=== PATIENT | male | born 2000 | race Hispanic/Latino ===

== ENCOUNTER 2019-05-01 09:55 | Emergency (ER) | payer SELFPAY ==
--- NOTE | 2019-05-01 10:31 | ER ---
Nurse's Notes [facility] Name: Bakari Mayers Age: 18 yrs Sex: Male : 2000 Arrival Date: 05/01/2019 Time: 09:58 Bed 20 Private MD: Diagnosis: Pulpitis;Dental root caries Presentation: 05/01 10:17 Presenting complaint: Patient states: R TOOTH PAIN x2 DAYS. Transition of care: patient bp was not received from another setting of care. Mechanism of Injury: No Mechanism of Injury. The patient denies any loss of vision. Onset of symptoms is unknown. Risk Assessment: Do you want to hurt yourself or someone else? Patient reports no desire to harm self or others. Initial Sepsis Screen: Does the patient meet any 2 criteria? No. Patient's initial sepsis screen is negative. Does the patient have a suspected source of infection? No. Patient's initial sepsis screen is negative. Care prior to arrival: Medication(s) given: IBUPROFEN AND AMOXICILLIN FROM [place]. 10:17 Method Of Arrival: Ambulatory bp 10:17 Acuity: BREANN 5 bp Triage Assessment: 10:18 General: Appears in no apparent distress. comfortable, Behavior is cooperative, bp appropriate for age, anxious. Pain: Complains of pain in right side of head. EENT: Reports R DENTAL PAIN. Neuro: No deficits noted. Cardiovascular: No deficits noted. Respiratory: No deficits noted. GI: No signs and/or symptoms were reported involving the gastrointestinal system. : No signs and/or symptoms were reported regarding the genitourinary system. Derm: No deficits noted. Musculoskeletal: No deficits noted. Historical: - Allergies: 10:18 No Known Allergies; bp - Home Meds: 10:18 None [Active]; bp - PMHx: 10:18 None; bp - Immunization history:: Adult Immunizations up to date. - Social history:: Smoking status: Patient/guardian denies using tobacco. - Ebola Screening: : No symptoms or risks identified at this time. Screenin:23 Abuse screen: Denies threats or abuse. Denies injuries from another. Nutritional bp screening: No deficits noted. Tuberculosis screening: No symptoms or risk factors identified. Fall Risk None identified. Assessment: 10:21 General: SEE TRIAGE NOTE. EENT: Eyes NO ABNORMALITIES NOTED. Sclera/Cornea are clear in bp right eye. 10:41 Reassessment: PT D/C HOME AMBULATORY WITH FAMILY, DX WITH PULPITIS. bp Vital Signs: 10:18 BP 138 / 73; Pulse 93; Resp 17; Temp 98; Pulse Ox 100% ; Weight 113.4 kg; Height 5 ft. bp 10 in. (177.80 cm); 10:18 Body Mass Index 35.87 (113.40 kg, 177.80 cm) bp ED Course: 09:58 Patient arrived in ED. mr 10:11 Jazzmine Wade, RN is Primary Nurse. ph 10:11 Sonny Luna PA is PHCP. jr8 10:11 Damien Pollock MD is Attending Physician. jr8 10:12 Damien Pollock MD is Attending Physician. jr8 10:18 Triage completed. bp 10:18 Arm band placed on. bp 10:23 Patient has correct armband on for positive identification. Bed in low position. Call bp light in reach. Side rails up X2. 10:42 No provider procedures requiring assistance completed. Patient did not have IV access bp during this emergency room visit. Administered Medications: 10:41 Drug: [place] (7.5 mg-325 mg) 1 tabs Route: PO; bp 10:41 Follow up: Response: Medication administered at discharge. bp Outcome: 10:30 Discharge ordered by . jr8 10:42 Discharged to home ambulatory, with family. bp 10:42 Condition: stable 10:42 Discharge instructions given to patient, Instructed on discharge instructions, follow up and referral plans. medication usage, Demonstrated understanding of instructions, follow-up care, medications, Prescriptions given X 2. 10:42 Patient left the ED. bp Signatures: Jose Teresa mr Sonny Luna, MARY PA jr8 Jazzmine Wade, RN RN ph Phi Harkins RN RN bp
--- NOTE | 2019-05-01 10:31 | EDPHYS ---
Physician Documentation [facility] Name: Bakari Mayers Age: 18 yrs Sex: Male : 2000 Arrival Date: 05/01/2019 Time: 09:58 Bed 20 Private MD: ED Physician Damien Pollock HPI: 05/01 10:31 This 18 yrs old Male presents to ER via Ambulatory with complaints of Dental jr8 pain. 10:31 The patient presents with pain. The problem is located in the mouth. Onset: The jr8 symptoms/episode began/occurred acutely, yesterday. Duration: The symptoms are continuous. Modifying factors: The symptoms are alleviated by nothing, the symptoms are aggravated by air, chewing, talking. Associated signs and symptoms: Pertinent positives: pain, radiating to right eye. Severity of symptoms: At their worst the symptoms were mild, in the emergency department the symptoms are unchanged. The patient has experienced a previous episode. The patient has not recently seen a physician. Historical: - Allergies: 10:18 No Known Allergies; bp - Home Meds: 10:18 None [Active]; bp - PMHx: 10:18 None; bp - Immunization history:: Adult Immunizations up to date. - Social history:: Smoking status: Patient/guardian denies using tobacco. - Ebola Screening: : No symptoms or risks identified at this time. ROS: 10:31 Constitutional: Negative for fever, chills, and weight loss. jr8 10:31 ENT: Positive for dental pain, Gum pain 10:31 All other systems are negative. Exam: 10:31 Constitutional: This is a well developed, well nourished patient who is awake, alert, jr8 and in no acute distress. Head/Face: Normocephalic, atraumatic. Eyes: Pupils equal round and reactive to light, extra-ocular motions intact. Lids and lashes normal. Conjunctiva and sclera are non-icteric and not injected. Cornea within normal limits. Periorbital areas with no swelling, redness, or edema. Neck: Trachea midline, no thyromegaly or masses palpated, and no cervical lymphadenopathy. Supple, full range of motion without nuchal rigidity, or vertebral point tenderness. No Meningismus. Cardiovascular: Regular rate and rhythm with a normal S1 and S2. No gallops, murmurs, or rubs. Normal PMI, no JVD. No pulse deficits. Respiratory: Lungs have equal breath sounds bilaterally, clear to auscultation and percussion. No rales, rhonchi or wheezes noted. No increased work of breathing, no retractions or nasal flaring. Skin: Warm, dry with normal turgor. Normal color with no rashes, no lesions, and no evidence of cellulitis. MS/ Extremity: Pulses equal, no cyanosis. Neurovascular intact. Full, normal range of motion. Neuro: Awake and alert, GCS 15, oriented to person, place, time, and situation. Cranial nerves II-XII grossly intact. Motor strength 5/5 in all extremities. Sensory grossly intact. Cerebellar exam normal. Normal gait. 10:31 ENT: Exam is negative for earache, ear discharge, TM abnormalities, nasal discharge, Mouth: Lips: moist, Oral mucosa: pink and intact, moist, Gums: reddened, swollen, on the lower right third molar, Tongue: is moist, Posterior pharynx: Airway: patent, Tonsils: are normal in appearance, Uvula: midline, swelling, is not appreciated, erythema, is not appreciated, exudate, is not appreciated, Dental exam: dental caries, that is mild, diffusely, fractured teeth are noted, specifically the upper right second molar (#2), pain, that is moderate, specifically in the upper right second molar (#2) and lower right third molar (#32). Vital Signs: 10:18 BP 138 / 73; Pulse 93; Resp 17; Temp 98; Pulse Ox 100% ; Weight 113.4 kg; Height 5 ft. bp 10 in. (177.80 cm); 10:18 Body Mass Index 35.87 (113.40 kg, 177.80 cm) bp MDM: 10:12 Patient medically screened. jr8 10:29 Data reviewed: vital signs, nurses notes, and as a result, I will discharge patient. jr8 Data interpreted: Pulse oximetry: on room air is 100 %. Interpretation: normal. Counseling: I had a detailed discussion with the patient and/or guardian regarding: the historical points, exam findings, and any diagnostic results supporting the discharge/admit diagnosis, the need for outpatient follow up, a dentist, to return to the emergency department if symptoms worsen or persist or if there are any questions or concerns that arise at home. 10:31 Differential diagnosis: dental caries, gingivitis, dental abscess, pericoronitis, jr8 aphthous ulcers, cellulitis. Administered Medications: 10:41 Drug: [place] (7.5 mg-325 mg) 1 tabs Route: PO; bp 10:41 Follow up: Response: Medication administered at discharge. bp Disposition: 10:49 Co-signature as Attending Physician, Damien Pollock MD. rn Disposition: 05/01/19 10:30 Discharged to Home. Impression: Pulpitis, Dental root caries. - Condition is Stable. - Discharge Instructions: Dental Pain, Root Canal. - Prescriptions for Amoxicillin 875 mg Oral Tablet - take 1 tablet by ORAL route every 12 hours for 7 days; 14 tablet. Tylenol- Codeine #3 300-30 mg Oral Tablet - take 2 tablets by ORAL route every 6 hours As needed; 12 tablet. - Medication Reconciliation Form, Thank You Letter, Antibiotic Education, Prescription Opioid Use form. - Follow up: Private Physician; When: 2 - 3 days; Reason: Recheck today's complaints, Continuance of care, Re-evaluation by your physician. - Problem is new. - Symptoms have improved. Signatures: Damien Pollock MD MD rn Roszak, Josh, PA PA jr8 Phi Harkins RN RN bp Corrections: (The following items were deleted from the chart) 10:42 10:30 05/01/2019 10:30 Discharged to Home. Impression: Pulpitis; Dental root caries. bp Condition is Stable. Forms are Medication Reconciliation Form, Thank You Letter, Antibiotic Education, Prescription Opioid Use. Follow up: Private Physician; When: 2 - 3 days; Reason: Recheck today's complaints, Continuance of care, Re-evaluation by your physician. Problem is new. Symptoms have improved. jr8
[2019-05-01] MEDS ORDERED: HYDROCODONE/APAP 7.5/325 MG TAB ONE (10:38)
[2019-05-01 13:03] VITALS: BP 138/73; TEMP 98; O2SAT 100
== END 2019-05-01 10:42 | disposition home or self-care (01) ==
LOC: ER 09:55
DX: K04.01 Reversible pulpitis (principal); K02.7 Dental root caries
CPT/HCPCS: 99283

== ENCOUNTER 2019-06-18 17:40 | Emergency (ER) | payer SELFPAY ==
--- NOTE | 2019-06-18 19:30 | ER ---
Nurse's Notes [facility] Name: Bakari Mayers Age: 19 yrs Sex: Male : 2000 Arrival Date: 06/18/2019 Time: 17:42 Bed 28 Private MD: Diagnosis: Dental caries Presentation: 06/18 17:56 Presenting complaint: Patient states: "I was in like a month and a half ago for my aj1 tooth, they told me I had another tooth that needed to be pulled out and it started hurting and today it got worse, it just hurts really bad" Patient reports right jaw pain. Transition of care: patient was not received from another setting of care. Onset of symptoms was June 18, 2019. Risk Assessment: Do you want to hurt yourself or someone else? Patient reports no desire to harm self or others. Initial Sepsis Screen: Does the patient meet any 2 criteria? No. Patient's initial sepsis screen is negative. Does the patient have a suspected source of infection? Yes: Other: infected tooth. Care prior to arrival: None. 17:56 Method Of Arrival: Ambulatory [facility] 17:56 Acuity: BREANN 4 aj1 Triage Assessment: 17:58 General: Appears in no apparent distress. uncomfortable, Behavior is calm, cooperative, aj1 appropriate for age. Pain: Complains of pain in right jaw Pain currently is 3 out of 10 on a pain scale. EENT: Reports pain in right jaw. Neuro: Level of Consciousness is awake, alert, obeys commands. Cardiovascular: Patient's skin is warm and dry. Respiratory: Airway is patent Respiratory effort is even, unlabored, Respiratory pattern is regular, symmetrical. Historical: - Allergies: 17:58 No Known Allergies; aj1 - Home Meds: 17:58 None [Active]; aj1 - PMHx: 17:58 None; aj1 - PSHx: 17:58 None; aj1 - Immunization history:: Flu vaccine is not up to date. - Social history:: Smoking status: Patient/guardian denies using tobacco. - Ebola Screening: : Patient denies travel to an Ebola-affected area in the 21 days before illness onset. Screenin:22 Abuse screen: Denies threats or abuse. Denies injuries from another. Nutritional iw screening: No deficits noted. Tuberculosis screening: No symptoms or risk factors identified. Fall Risk None identified. Assessment: 18:21 General: Appears in no apparent distress. Behavior is calm, cooperative. Pain: iw Complains of pain in right jaw. Neuro: Level of Consciousness is awake, alert, obeys commands. Derm: Skin is intact, is healthy with good turgor. Vital Signs: 17:58 BP 149 / 81; Pulse 91; Resp 18; Temp 98.1; Pulse Ox 99% on R/A; Weight 113.4 kg (R); aj1 Height 5 ft. 11 in. (180.34 cm) (R); Pain 3/10; 19:37 BP 138 / 83; Pulse 86; Resp 16; Pulse Ox 99% on R/A; rv 17:58 Body Mass Index 34.87 (113.40 kg, 180.34 cm) aj1 ED Course: 17:42 Patient arrived in ED. as 17:57 Triage completed. aj1 17:58 Arm band placed on Patient placed in waiting room, Patient notified of wait time. aj 18:00 Joann Rust FNP-C [facility]. snw 18:00 Damien Pollock MD is Attending Physician. snw 18:16 Lauryn Mackey, JEB is Primary Nurse. iw 18:22 No provider procedures requiring assistance completed. Patient did not have IV access iw during this emergency room visit. 19:00 Patient has correct armband on for positive identification. Pulse ox on. NIBP on. rv Administered Medications: 19:37 Not Given (Patient Refused): TORadol 30 mg IM once rv 19:37 Drug: Amoxicillin 500 mg Route: PO; rv 19:37 Follow up: Response: Medication administered at discharge. rv Outcome: 19:29 Discharge ordered by . snw 19:38 Discharged to home ambulatory. rv 19:38 Condition: good 19:38 Discharge instructions given to patient, Instructed on Demonstrated understanding of instructions, follow-up care, Prescriptions given X 2. 19:39 Patient left the ED. rv Signatures: Genesis Harris RN RN aj1 Joann Rust FNP-C [employer] REPAIRER-Beverly Mcdonough as Lauryn Mackey RN RN iw Zain Min RN RN rv
--- NOTE | 2019-06-18 19:30 | EDPHYS ---
Physician Documentation [facility] Name: Bakari Mayers Age: 19 yrs Sex: Male : 2000 Arrival Date: 06/18/2019 Time: 17:42 Bed 28 Private MD: ED Physician Damien Pollock HPI: 06/18 19:33 This 19 yrs old Male presents to ER via Ambulatory with complaints of snw Toothache. 19:33 The patient presents with pain. The problem is located in the lower right second molar snw (#31). Onset: The symptoms/episode began/occurred gradually, and became worse today. Duration: The symptoms are continuous. Modifying factors: The symptoms are alleviated by nothing. Associated signs and symptoms: The patient has no apparent associated signs or symptoms. The patient has experienced a previous episode, last month, different tooth, that tooth was extracted and pt was told this tooth needed extraction as well. Pt encouraged to f/u mary. as noted. Historical: - Allergies: 17:58 No Known Allergies; aj1 - Home Meds: 17:58 None [Active]; aj1 - PMHx: 17:58 None; aj1 - PSHx: 17:58 None; aj1 - Immunization history:: Flu vaccine is not up to date. - Social history:: Smoking status: Patient/guardian denies using tobacco. - Ebola Screening: : Patient denies travel to an Ebola-affected area in the 21 days before illness onset. ROS: 19:32 Constitutional: Negative for fever, chills, and weight loss, Eyes: Negative for injury, snw pain, redness, and discharge, Neck: Negative for injury, pain, and swelling, Cardiovascular: Negative for chest pain, palpitations, and edema, Respiratory: Negative for shortness of breath, cough, wheezing, and pleuritic chest pain, Abdomen/GI: Negative for abdominal pain, nausea, vomiting, diarrhea, and constipation, Back: Negative for injury and pain, : Negative for injury, bleeding, discharge, and swelling, MS/Extremity: Negative for injury and deformity, Skin: Negative for injury, rash, and discoloration, Neuro: Negative for headache, weakness, numbness, tingling, and seizure. 19:32 ENT: Positive for dental pain. Exam: 19:27 Constitutional: This is a well developed, well nourished patient who is awake, alert, snw and in no acute distress. Head/Face: Normocephalic, atraumatic. Eyes: Pupils equal round and reactive to light, extra-ocular motions intact. Lids and lashes normal. Conjunctiva and sclera are non-icteric and not injected. Cornea within normal limits. Periorbital areas with no swelling, redness, or edema. Neck: Trachea midline, no thyromegaly or masses palpated, and no cervical lymphadenopathy. Supple, full range of motion without nuchal rigidity, or vertebral point tenderness. No Meningismus. Chest/axilla: Normal chest wall appearance and motion. Nontender with no deformity. No lesions are appreciated. Cardiovascular: Regular rate and rhythm with a normal S1 and S2. No gallops, murmurs, or rubs. Normal PMI, no JVD. No pulse deficits. Respiratory: Lungs have equal breath sounds bilaterally, clear to auscultation and percussion. No rales, rhonchi or wheezes noted. No increased work of breathing, no retractions or nasal flaring. Abdomen/GI: Soft, non-tender, with normal bowel sounds. No distension or tympany. No guarding or rebound. No evidence of tenderness throughout. Back: No spinal tenderness. No costovertebral tenderness. Full range of motion. Skin: Warm, dry with normal turgor. Normal color with no rashes, no lesions, and no evidence of cellulitis. MS/ Extremity: Pulses equal, no cyanosis. Neurovascular intact. Full, normal range of motion. Neuro: Awake and alert, GCS 15, oriented to person, place, time, and situation. Cranial nerves II-XII grossly intact. Motor strength 5/5 in all extremities. Sensory grossly intact. Cerebellar exam normal. Normal gait. Psych: Awake, alert, with orientation to person, place and time. Behavior, mood, and affect are within normal limits. 19:27 ENT: External ear(s): are unremarkable, Ear canal(s): are normal, TM's: are normal, Nose: is normal, Mouth: is normal, Posterior pharynx: is normal, Dental exam: pain, that is severe, specifically in the lower right second molar (#31). Vital Signs: 17:58 BP 149 / 81; Pulse 91; Resp 18; Temp 98.1; Pulse Ox 99% on R/A; Weight 113.4 kg (R); aj1 Height 5 ft. 11 in. (180.34 cm) (R); Pain 3/10; 19:37 BP 138 / 83; Pulse 86; Resp 16; Pulse Ox 99% on R/A; rv 17:58 Body Mass Index 34.87 (113.40 kg, 180.34 cm) aj1 MDM: 19:16 Patient medically screened. snw 19:31 Data reviewed: vital signs, nurses notes. Data interpreted: Pulse oximetry: on room air snw is 99 %. Interpretation: normal. Counseling: I had a detailed discussion with the patient and/or guardian regarding: the historical points, exam findings, and any diagnostic results supporting the discharge/admit diagnosis, the presence of at least one elevated blood pressure reading (>120/80) during this emergency department visit, the need for outpatient follow up, for definitive care, a dentist. Special discussion: I have referred the patient to see his PCP for further evaluation of high blood pressure. Based on the history and exam findings, there is no indication for further emergent testing or inpatient evaluation. I discussed with the patient/guardian the need to see a dentist for further evaluation of the symptoms. 19:35 Counseling: I had a detailed discussion with the patient and/or guardian regarding: snw smoking cessation. Administered Medications: 19:37 Not Given (Patient Refused): TORadol 30 mg IM once rv 19:37 Drug: Amoxicillin 500 mg Route: PO; rv 19:37 Follow up: Response: Medication administered at discharge. rv Disposition: 19:41 Co-signature as Attending Physician, Damien Pollock MD. rn Disposition: 06/18/19 19:29 Discharged to Home. Impression: Dental caries. - Condition is Stable. - Discharge Instructions: Dental Pain, Hypertension, Diet and Dental Disease, Preventive Dental Care, Adult. - Prescriptions for Amoxicillin 500 mg Oral Capsule - take 1 capsule by ORAL route every 8 hours for 10 days; 30 tablet. Diclofenac Sodium 75 mg Oral Tablet Sustained Release - take 1 tablet by ORAL route 2 times per day; 30 tablet. - Medication Reconciliation Form, Thank You Letter, Antibiotic Education, Prescription Opioid Use form. - Follow up: Private Physician; When: 2 - 3 days; Reason: Recheck today's complaints, Continuance of care, Re-evaluation by your physician. Follow up: Emergency Department; When: As needed; Reason: Worsening of condition. Signatures: Genesis Harris RN RN aj1 Joann Rust, YENNY-C GARMENT INSPECTOR-CsnDamien Miranda MD MD rn Vicente, Ronaldo, RN RN rv Corrections: (The following items were deleted from the chart) 19:39 19:29 06/18/2019 19:29 Discharged to Home. Impression: Dental caries. Condition is rv Stable. Forms are Medication Reconciliation Form, Thank You Letter, Antibiotic Education, Prescription Opioid Use. Follow up: Private Physician; When: 2 - 3 days; Reason: Recheck today's complaints, Continuance of care, Re-evaluation by your physician. Follow up: Emergency Department; When: As needed; Reason: Worsening of condition. snw
[2019-06-18] MEDS ORDERED: AMOXICILLIN TRIHYDR 250 MG CAP ONE (19:36)
[2019-06-18] MEDS ORDERED: KETOROLAC 30 MG/ML INJ ONE (19:36)
[2019-06-18 19:44] VITALS: TEMP 98.1; O2SAT 99
[2019-06-18 19:46] VITALS: BP 138/83
== END 2019-06-18 19:39 | disposition home or self-care (01) ==
LOC: ER 17:40
DX: K02.9 Dental caries, unspecified (principal)
CPT/HCPCS: 99283

== ENCOUNTER 2019-09-23 22:20 | Emergency (ER) | payer SELFPAY ==
--- NOTE | 2019-09-23 22:29 | EDPHYS ---
Physician Documentation [facility] Name: Bakari Mayers Age: 19 yrs Sex: Male : 2000 Arrival Date: 09/23/2019 Time: 22:21 Bed Waiting Private MD: ED Physician Maurizio Johansen HPI: 09/22 23:05 This 19 yrs old Male presents to ER via Ambulatory with complaints of Medical kb Clearance. 23:05 Pt reports he had nausea last night and his said he felt hot this morning so he kb didn't go to work. 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 Reports he feels fine now, only has some nasal congestion. Came to get a note to return to work. Onset: The symptoms/episode began/occurred yesterday. Severity of symptoms: At their worst the symptoms were mild in the emergency department the symptoms have resolved. The patient has not experienced similar symptoms in the past. The patient has not recently seen a physician. Historical: - Allergies: 22:27 No Known Allergies; ll1 - PMHx: 22:27 None; ll1 - Immunization history:: Flu vaccine is not up to date. - Social history:: Patient/guardian denies using alcohol, street drugs, tobacco products, Smoking status: Patient denies any tobacco usage or history of. ROS: 23:05 Constitutional: Negative for fever, chills, and weight loss, ENT: Negative for injury, kb pain, and discharge, Neck: Negative for injury, pain, and swelling, Cardiovascular: Negative for chest pain, palpitations, and edema, Respiratory: Negative for shortness of breath, cough, wheezing, and pleuritic chest pain, Abdomen/GI: Negative for abdominal pain, nausea, vomiting, diarrhea, and constipation, MS/Extremity: Negative for injury and deformity, Skin: Negative for injury, rash, and discoloration, Neuro: Negative for headache, weakness, numbness, tingling, and seizure. Exam: 23:05 Constitutional: This is a well developed, well nourished patient who is awake, alert, kb and in no acute distress. Head/Face: Normocephalic, atraumatic. ENT: Nares patent. No nasal discharge, no septal abnormalities noted. Tympanic membranes are normal and external auditory canals are clear. Oropharynx with no redness, swelling, or masses, exudates, or evidence of obstruction, uvula midline. Mucous membranes moist. Neck: Trachea midline, no thyromegaly or masses palpated, and no cervical lymphadenopathy. Supple, full range of motion without nuchal rigidity, or vertebral point tenderness. No Meningismus. Chest/axilla: Normal chest wall appearance and motion. Nontender with no deformity. No lesions are appreciated. Cardiovascular: Regular rate and rhythm with a normal S1 and S2. No gallops, murmurs, or rubs. Normal PMI, no JVD. No pulse deficits. Respiratory: Lungs have equal breath sounds bilaterally, clear to auscultation and percussion. No rales, rhonchi or wheezes noted. No increased work of breathing, no retractions or nasal flaring. Abdomen/GI: Soft, non-tender, with normal bowel sounds. No distension or tympany. No guarding or rebound. No evidence of tenderness throughout. Skin: Warm, dry with normal turgor. Normal color with no rashes, no lesions, and no evidence of cellulitis. MS/ Extremity: Pulses equal, no cyanosis. Neurovascular intact. Full, normal range of motion. Neuro: Awake and alert, GCS 15, oriented to person, place, time, and situation. Cranial nerves II-XII grossly intact. Motor strength 5/5 in all extremities. Sensory grossly intact. Cerebellar exam normal. Normal gait. Vital Signs: 22:25 BP 148 / 84; Pulse 93; Resp 17; Temp 97.2; Pulse Ox 100% ; Weight 113.4 kg; Height 5 ll1 ft. 11 in. (180.34 cm); Pain 0/10; 22:25 Body Mass Index 34.87 (113.40 kg, 180.34 cm) ll1 MDM: 22:28 Patient medically screened. kb 23:07 Data reviewed: vital signs, nurses notes. Data interpreted: Pulse oximetry: on room air kb is 100 %. Interpretation: normal. Counseling: I had a detailed discussion with the patient and/or guardian regarding: the historical points, exam findings, and any diagnostic results supporting the discharge/admit diagnosis, the need for outpatient follow up, a family practitioner, to return to the emergency department if symptoms worsen or persist or if there are any questions or concerns that arise at home. Administered Medications: No medications were administered Disposition: 09/23 05:31 Co-signature as Attending Physician, Maurizio Johansen MD I agree with the assessment and tw4 plan of care. Disposition: 09/23/19 22:28 Discharged to Home. Impression: Nasal congestion. - Condition is Stable. - Discharge Instructions: Nasal Allergies, [id number]. - Work release form, Medication Reconciliation Form, Thank You Letter, Antibiotic Education, Prescription Opioid Use form. - Follow up: Emergency Department; When: As needed; Reason: Worsening of condition. Follow up: Private Physician; When: 2 - 3 days; Reason: Recheck today's complaints, Continuance of care, Re-evaluation by your physician. Signatures: Melissa Torres, PUNCHER-C YENNY-Maurizio Coles MD MD tw4 Pratibha Fair RN RN ll1 Corrections: (The following items were deleted from the chart) 09/22 22:33 22:28 09/23/2019 22:28 Discharged to Home. Impression: Nasal congestion. Condition is ll1 Stable. Forms are Medication Reconciliation Form, Thank You Letter, Antibiotic Education, Prescription Opioid Use. Follow up: Emergency Department; When: As needed; Reason: Worsening of condition. Follow up: Private Physician; When: 2 - 3 days; Reason: Recheck today's complaints, Continuance of care, Re-evaluation by your physician. kb
--- NOTE | 2019-09-23 22:29 | ER ---
Nurse's Notes [facility] Name: Bakari Mayers Age: 19 yrs Sex: Male : 2000 Arrival Date: 09/23/2019 Time: 22:21 Bed Waiting Private MD: Diagnosis: Nasal congestion Presentation: 09/22 22:25 Chief complaint: Patient states: Missed work this morning for nausea. States he felt ll1 hot last night. No fever. No cough. Slight nasal congestion. Feels better now, needs work release. Coronavirus screen: Patient denies a cough. Patient denies shortness of breath or difficulty breathing. Patient denies measured and/or subjective temperature greater than 100.4F prior to today's visit. Patient denies travel on a cruise ship or to a country the [facility] currently lists as an affected area. Patient denies contact with known and/or suspected case of COVID-19. Ebola Screen: Patient denies travel to an Ebola-affected area in the 21 days before illness onset. Initial Sepsis Screen: Does the patient meet any 2 criteria? No. Patient's initial sepsis screen is negative. Risk Assessment: Do you want to hurt yourself or someone else? Patient reports no desire to harm self or others. Onset of symptoms was September 22, 2019. 22:25 Method Of Arrival: Ambulatory ll1 22:25 Acuity: BREANN 5 ll1 22:28 Initial Sepsis Screen: Does the patient have a suspected source of infection? No. ll1 Patient's initial sepsis screen is negative. Triage Assessment: 22:28 General: Appears in no apparent distress. Behavior is calm, cooperative. Pain: Denies ll1 pain. EENT: Reports nasal congestion. Neuro: No deficits noted. Cardiovascular: No deficits noted. Respiratory: No deficits noted. GI: Abdomen is flat, Bowel sounds present X 4 quads. Abd is soft and non tender X 4 quads. Reports nausea. : No deficits noted. Historical: - Allergies: 22:27 No Known Allergies; ll1 - PMHx: 22:27 None; ll1 - Immunization history:: Flu vaccine is not up to date. - Social history:: Patient/guardian denies using alcohol, street drugs, tobacco products, Smoking status: Patient denies any tobacco usage or history of. Screenin:28 Abuse screen: Denies threats or abuse. Nutritional screening: No deficits noted. ll1 Tuberculosis screening: No symptoms or risk factors identified. Fall Risk None identified. Total Jauregui Fall Scale indicates No Risk (0-24 pts). Vital Signs: 22:25 BP 148 / 84; Pulse 93; Resp 17; Temp 97.2; Pulse Ox 100% ; Weight 113.4 kg; Height 5 ll1 ft. 11 in. (180.34 cm); Pain 0/10; 22:25 Body Mass Index 34.87 (113.40 kg, 180.34 cm) ll1 ED Course: 22:21 Patient arrived in ED. cl3 22:22 Melissa Torres [facility]C [facility] kb 22:22 Maurizio Johansen MD is Attending Physician. kb 22:27 Triage completed. ll1 22:28 Arm band placed on Patient placed in an exam room, on a stretcher. ll1 22:29 Patient has correct armband on for positive identification. Bed in low position. Call ll1 light in reach. Side rails up X 1. 22:29 No provider procedures requiring assistance completed. Patient did not have IV access ll1 during this emergency room visit. 22:32 Pratibha Fair, RN is Primary Nurse. ll1 Administered Medications: No medications were administered Outcome: 22:28 Discharge ordered by . kb 22:29 Discharged to home ambulatory. ll1 22:29 Condition: stable 22:29 Discharge instructions given to patient, Instructed on discharge instructions, follow up and referral plans. Demonstrated understanding of instructions, follow-up care. 22:33 Patient left the ED. ll1 Signatures: Melissa Torres FNP-C FNP-Ckb Lewis, Charde cl3 Pratibha Fair, RN RN ll1
[2019-09-23 22:38] VITALS: BP 148/84; TEMP 97.2; O2SAT 100
== END 2019-09-23 22:33 | disposition home or self-care (01) ==
LOC: ER 22:20
DX: R09.81 Nasal congestion (principal)
CPT/HCPCS: 99281

== ENCOUNTER 2020-05-04 13:01 | Emergency (ER) | payer SELFPAY ==
[2020-05-04] MEDS ORDERED: NA CHLORIDE 0.9% 1,000 ML ONE (13:51)
[2020-05-04] MEDS ORDERED: ONDANSETRON 4 MG/2 ML VIAL ONE (13:51)
[2020-05-04 14:15] LABS: Basophils % 0.5 % (0-1.3); Hematocrit 44.1 % (39.6-49.0); Lymphocytes % 18.4 % (15.3-44.8); MPV 9.3 fL (7.6-11.3); RBC Red Blood Cell Count 5.11 M/uL (4.33-5.43)
[2020-05-04 14:24] LABS: Protime INR 0.98
[2020-05-04 14:32] LABS: ALT/SGPT 24 U/L (12-78); AST/SGOT 13 U/L (15-37); Albumin 4.2 g/dL (3.4-5.0); Alkaline Phosphatase 100 U/L (45-117); BUN Blood Urea Nitrogen 10 mg/dL (7-18); Bicarbonate 19 mmol/L (21-32); Bilirubin Direct 0.1 mg/dL (0-0.2); Bilirubin Total 0.4 mg/dL (0.2-1.0); Glucose Level 148 mg/dL (74-106); Potassium 4.6 mmol/L (3.5-5.1); Protein, Total 8.5 g/dL (6.4-8.2); Sodium Level 138 mmol/L (136-145)
--- NOTE | 2020-05-04 14:53 | RAD REPORT ---
EXAM DESCRIPTION: CT - Head Brain Wo Cont - 05/04/2020 2:29 pm CLINICAL HISTORY: SEIZURE Headache, drowsiness, seizure COMPARISON: No comparisons TECHNIQUE: All CT scans are performed using dose optimization technique as appropriate and may inclu de automated exposure control or mA/KV adjustment according to patient size. FINDINGS: No intracranial hemorrhage, hydrocephalus or extra-axial fluid collection.No areas of brai n edema or evidence of midline shift. The paranasal sinuses and mastoids are clear. The calvarium is intact. IMPRESSION: No acute intracranial abnormality.
--- NOTE | 2020-05-04 14:54 | RAD REPORT ---
EXAM DESCRIPTION: CTAbdomen Pelvis W Contrast - 05/04/2020 2:31 pm CLINICAL HISTORY: Abdominal pain. ABD PAIN COMPARISON: No comparisons TECHNIQUE: Biphasic CT imaging of the abdomen and pelvis was performed with 100 ml non-ionic IV cont rast. All CT scans are performed using dose optimization technique as appropriate and may include automated exposure control or mA/KV adjustment according to patient size. FINDINGS: The lung bases are clear. The liver, spleen, pancreas, adrenal glands and kidneys are within normal limits. No bowel obstruction, free air, free fluid or abscess. The appendix is normal. No evidence of signi ficant lymphadenopathy. No suspicious bony findings. IMPRESSION: No acute intra-abdominal or pelvic finding.
[2020-05-04] MEDS ORDERED: ACETAMINOPHEN 325 MG TABLET ONE (15:29)
[2020-05-04 15:36] LABS: Barbiturates NEGATIVE (NEGATIVE); Benzodiazepines NEGATIVE (NEGATIVE); Cocaine NEGATIVE (NEGATIVE); METHAMPHETAM NEGATIVE (NEGATIVE); Methadone NEGATIVE (NEGATIVE); Opiates NEGATIVE (NEGATIVE); Phencyclidine NEGATIVE (NEGATIVE); THC Cannibis POSITIVE (NEGATIVE)
--- NOTE | 2020-05-04 15:44 | ER ---
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 + abd pain with N/V since. Coronavirus screen: Client denies travel out of the [place] in the last 14 days. At this time, the client does not indicate any symptoms associated with coronavirus-19. Ebola Screen: Patient denies travel to an Ebola-affected area in the 21 days before illness onset. Initial Sepsis Screen: Does the patient meet any 2 criteria? HR > 90 bpm. No. Patient's initial sepsis screen is negative. Does the patient have a suspected source of infection? No. Patient's initial sepsis screen is negative. Risk Assessment: Do you want to hurt yourself or someone else? Patient reports no desire to harm self or others. Onset of symptoms was May 04, 2020. 13:15 Method Of Arrival: Wheelchair ll1 13:15 Acuity: BREANN 2 ll1 Historical: - Allergies: 13:15 No Known Allergies; ll1 - PSHx: 13:15 None; ll1 - Immunization history:: Flu vaccine status is unknown. - Social history:: Smoking status: Reported history of juuling and/or vaping. Patient denies any tobacco usage or history of. Screenin:20 Abuse screen: Denies threats or abuse. Nutritional screening: No deficits noted. vg1 Tuberculosis screening: No symptoms or risk factors identified. Fall Risk No fall in past 12 months (0 pts). No secondary diagnosis (0 pts). IV access (20 points). Ambulatory Aid- None/Bed Rest/Nurse Assist (0 pts). Gait- Normal/Bed Rest/Wheelchair (0 pts) Mental Status- Oriented to own ability (0 pts). Total Jauregui Fall Scale indicates No Risk (0-24 pts). Assessment: 13:20 General: Appears in no apparent distress. uncomfortable, Behavior is calm, cooperative. vg1 Pain: Complains of pain in Right upper quadrant Pain currently is 7 out of 10 on a pain scale. Pain began states "pain comes and goes for about a month in a half now". Is intermittent. Neuro: Level of Consciousness is awake, alert, obeys commands, Oriented to person, place, time, situation, Speech is normal. Cardiovascular: Capillary refill < 3 seconds in bilateral fingers. Respiratory: Airway is patent Respiratory effort is even, unlabored, Respiratory pattern is regular, symmetrical. GI: Reports nausea, vomiting, since earlier today. : No signs and/or symptoms were reported regarding the genitourinary system. EENT: No signs and/or symptoms were reported regarding the EENT system. Derm: Skin is diaphoretic. Musculoskeletal: Range of motion: intact in all extremities. 14:10 Reassessment: Patient stated "The last time I took Xanax was on Monday" 05/01/2020 but vg1 was unsure of the milligram; stated "just took one pill". Patient also stated "I smoked weed last night" 05/03/2020. Notified Gabriele ENLSON. 15:07 Reassessment: Patient appears in no apparent distress at this time. Patient and/or vg1 family updated on plan of care and expected duration. Pain level reassessed. Patient is alert, oriented x 3, equal unlabored respirations, skin warm/dry/pink. patient rated abd pain 0/10. Stated has a h/a. Notified Gabriele NELSON. 15:50 Reassessment: Patient appears in no apparent distress at this time. Patient and/or vg1 family updated on plan of care and expected duration. Pain level reassessed. Patient is alert, oriented x 3, equal unlabored respirations, skin warm/dry/pink. Vital Signs: 13:15 BP 131 / 88; Pulse 105; Resp 18; Temp 97.5; Pulse Ox 100% ; ll1 13:30 BP 125 / 63; Pulse 92; Resp 18; Pulse Ox 99% on R/A; vg1 14:00 BP 118 / 77; Pulse 78; Resp 18; Pulse Ox 100% on R/A; vg1 15:00 BP 129 / 67; Pulse 73; Resp 16; Pulse Ox 97% on R/A; vg1 15:58 BP 126 / 71; Pulse 77; Resp 18; Pulse Ox 97% ; sv Zonia Coma Score: 13:30 Eye Response: spontaneous(4). Verbal Response: oriented(5). Motor Response: obeys vg1 commands(6). Total: 15. ED Course: 13:02 Patient arrived in ED. ds1 13:15 Arm band placed on Patient placed in an exam room, on a stretcher. ll1 13:17 Triage completed. ll1 13:20 Florecita Bah, RN is Primary Nurse. vg1 13:21 Gabriele Urbina NP is PHCP. pm1 13:21 Damien Pollock MD is Attending Physician. pm1 13:21 Patient has correct armband on for positive identification. Bed in low position. Call [facility] light in reach. Adult w/ patient. Warm blanket given. campus monitor on. Pulse ox on. NIBP on. 13:22 Seizure precautions initiated. 5 13:50 Initial lab(s) drawn, by mn, sent to lab. Inserted saline lock: 20 gauge in left vg1 antecubital area, using aseptic technique. Blood collected. 14:28 CT Head Brain wo Cont In Process Unspecified. EDMS 14:31 CT Abd/Pelvis - IV Contrast Only In Process Unspecified. EDMS 15:09 Urine Dipstick--Ancillary (enter results) Sent. 5 15:09 Urine Drug Screen Sent. 5 15:09 Urine collected: clean catch specimen, clear. 5 15:59 No provider procedures requiring assistance completed. IV discontinued, intact, vg1 bleeding controlled, No redness/swelling at site. Pressure dressing applied. Administered Medications: 13:50 Drug: Zofran (Ondansetron) 4 mg Route: IVP; Site: left antecubital; vg1 15:08 Follow up: Response: No adverse reaction; Nausea is decreased vg1 14:10 Drug: NS 0.9% 1000 ml Route: IV; Rate: 1000 ml; Site: left antecubital; vg1 16:01 Follow up: IV Status: Completed infusion; IV Intake: 1000ml vg1 15:17 Drug: Tylenol 650 mg Route: PO; vg1 15:55 Follow up: Response: Pain is decreased vg1 Intake: 16:01 IV: 1000ml; Total: 1000ml. vg1 Outcome: 15:43 Discharge ordered by . pm1 15:59 Discharged to home ambulatory. vg1 15:59 Condition: stable 15:59 Discharge instructions given to patient, family, Instructed on discharge instructions, follow up and referral plans. Demonstrated understanding of instructions, follow-up care. 16:00 Patient left the ED. vg1 Signatures: Dispatcher [employer] Charisma Anna, RN Emili Parsons ds1 Gabriele Urbina, PROFESSIONAL SECURITY OFFICER PROFESSIONAL SECURITY OFFICER pm1 Brooklyn Fine Victoria, RN RN vg1 Pratibha Fair RN RN ll1
--- NOTE | 2020-05-04 15:44 | EDPHYS ---
[facility] Name: Bakari Mayers Age: 19 yrs Sex: Male : 2000 Arrival Date: 05/04/2020 Time: 13:02 Bed 6 Private MD: ED Physician Damien Pollock HPI: 05/04 13:30 This 19 yrs old Male presents to ER via Wheelchair with complaints of Seizure. pm1 13:30 The patient presents after having a possible seizure episode, blank stare was pm1 witnessed, Shaking hands, the episode(s) was witnessed, by family, brother. Character of seizure(s): Motor activity: focal activity, of the right hand and left hand, blank stare, Incontinence: none, Apnea: the patient did not experience apnea, No postictal period. Seizure onset: 1 hour(s) ago. Context: the seizure(s) was witnessed, Brother, occurred at home, occurred while the patient was standing, Contributing factors: Possibly abdominal pain. Seizure Hx: the patient has no previous seizure history. Associated injury: The patient did not suffer any apparent associated injury. Current symptoms: Abdominal pain and nausea. The patient has not recently seen a physician. Patient reports felling an upset stomach this AM that has been coming and going for the past 1.5 month, worse today than the past. He was standing with his brother and his brother noticed that the patient froze up, had a blank stare and started shaking both his hands. This lasted for about 30 seconds. Then he started falling over and his brother caught him. Did not hit the ground and no injury. They held him up and then about 10 seconds later he was able to walk with assistance to the vehicle to come to the ER. Historical: - Allergies: 13:15 No Known Allergies; ll1 - PSHx: 13:15 None; ll1 - Immunization history:: Flu vaccine status is unknown. - Social history:: Smoking status: Reported history of juuling and/or vaping. Patient denies any tobacco usage or history of. ROS: 13:30 Constitutional: Negative for fever, chills, and weight loss. pm1 13:30 Cardiovascular: Negative for chest pain, palpitations, and edema, Respiratory: Negative for shortness of breath, cough, wheezing, and pleuritic chest pain, Back: Negative for injury and pain, MS/Extremity: Negative for injury and deformity, Skin: Negative for injury, rash, and discoloration. 13:30 Abdomen/GI: Positive for abdominal pain, nausea, vomiting, Negative for diarrhea, constipation. 13:30 Neuro: Positive for seizure activity, Negative for dizziness, headache, numbness, tingling, weakness. Exam: 13:30 Head/Face: Normocephalic, atraumatic. Eyes: Pupils equal round and reactive to light, pm1 extra-ocular motions intact. Lids and lashes normal. Conjunctiva and sclera are non-icteric and not injected. Cornea within normal limits. Periorbital areas with no swelling, redness, or edema. 13:30 Back: No spinal tenderness. No costovertebral tenderness. Full range of motion. Skin: Warm, dry with normal turgor. Normal color with no rashes, no lesions, and no evidence of cellulitis. MS/ Extremity: Pulses equal, no cyanosis. Neurovascular intact. Full, normal range of motion. 13:30 ENT: Posterior pharynx: no acute changes, Airway: normal, no evidence of obstruction, patent, Voice: no acute changes. 13:30 Cardiovascular: Exam negative for acute changes, Rate: tachycardic, Rhythm: regular, Pulses: no pulse deficits are appreciated, Edema: is not appreciated. 13:30 Respiratory: Exam negative for acute changes, respiratory distress, shortness of breath. 13:30 Abdomen/GI: Inspection: abdomen appears normal, Palpation: soft, in all quadrants, mild abdominal tenderness, in the right upper quadrant. 13:30 Neuro: Exam negative for acute changes, Orientation: is normal, Mentation: is normal, Cranial nerves: CN II- XII are normal as tested, Motor: moves all fours, Sensation: is normal, no obvious gross deficits. Vital Signs: 13:15 BP 131 / 88; Pulse 105; Resp 18; Temp 97.5; Pulse Ox 100% ; ll1 13:30 BP 125 / 63; Pulse 92; Resp 18; Pulse Ox 99% on R/A; vg1 14:00 BP 118 / 77; Pulse 78; Resp 18; Pulse Ox 100% on R/A; vg1 15:00 BP 129 / 67; Pulse 73; Resp 16; Pulse Ox 97% on R/A; vg1 15:58 BP 126 / 71; Pulse 77; Resp 18; Pulse Ox 97% ; sv Moos[place] Coma Score: 13:30 Eye Response: spontaneous(4). Verbal Response: oriented(5). Motor Response: obeys vg1 commands(6). Total: 15. MDM: 13:21 Patient medically screened. pm1 13:54 Data reviewed: vital signs. Data interpreted: Pulse oximetry: on room air is 100 %. pm1 Interpretation: normal. 15:11 Counseling: I had a detailed discussion with the patient and/or guardian regarding: pm1 radiology results, patient admitted to using Xanax and marijuana. Discussed drug cessation with patient. Reports headache, will address with tylenol. 15:42 Counseling: I had a detailed discussion with the patient and/or guardian regarding: the pm1 historical points, exam findings, and any diagnostic results supporting the discharge/admit diagnosis, lab results, the need for outpatient follow up, a family practitioner. 05/04 13:29 Order name: Acetaminophen; Complete Time: 14:42 pm1 05/04 13:29 Order name: Basic Metabolic Panel; Complete Time: 14:42 pm1 05/04 13:29 Order name: CBC with Diff; Complete Time: 14:25 pm1 05/04 13:29 Order name: ETOH Level; Complete Time: 14:42 pm1 05/04 13:29 Order name: Hepatic Function; Complete Time: 14:42 pm1 05/04 13:29 Order name: PT-INR; Complete Time: 14:42 pm1 05/04 13:29 Order name: Ptt, Activated; Complete Time: 14:42 pm1 05/04 13:29 Order name: Salicylate; Complete Time: 14:42 pm1 05/04 13:29 Order name: Urine Drug Screen; Complete Time: 15:42 pm1 05/04 13:29 Order name: CT Head Brain wo Cont; Complete Time: 15:06 pm1 05/04 13:29 Order name: CT Abd/Pelvis - IV Contrast Only; Complete Time: 15:06 pm1 05/04 13:37 Order name: Lipase; Complete Time: 14:42 pm1 05/04 15:07 Order name: Urine Dipstick--Ancillary (enter results); Complete Time: 17:41 bd 05/04 13:29 Order name: EKG; Complete Time: 13:29 pm1 05/04 13:29 Order name: EKG - Nurse/Tech; Complete Time: 14:11 pm1 05/04 13:29 Order name: IV Saline Lock; Complete Time: 14:11 pm1 05/04 13:29 Order name: Labs collected and sent; Complete Time: 14:11 pm1 05/04 13:29 Order name: Urine Dipstick-Ancillary (obtain specimen); Complete Time: 15:42 pm1 Administered Medications: 13:50 Drug: Zofran (Ondansetron) 4 mg Route: IVP; Site: left antecubital; vg1 15:08 Follow up: Response: No adverse reaction; Nausea is decreased vg1 14:10 Drug: NS 0.9% 1000 ml Route: IV; Rate: 1000 ml; Site: left antecubital; vg1 16:01 Follow up: IV Status: Completed infusion; IV Intake: 1000ml vg1 15:17 Drug: Tylenol 650 mg Route: PO; vg1 15:55 Follow up: Response: Pain is decreased vg1 Disposition: 16:16 Co-signature as Attending Physician, Damien Pollock MD. rn Disposition: 05/04/20 15:43 Discharged to Home. Impression: Cannabis abuse, Adverse effect of benzodiazepines. - Condition is Stable. - Discharge Instructions: Cannabis Use Disorder, What You Need To Know About Illegal Drug Use and Dependence, Youth. - Medication Reconciliation Form, Thank You Letter, Antibiotic Education, Prescription Opioid Use form. - Follow up: Emergency Department; When: As needed; Reason: Worsening of condition. Follow up: Private Physician; When: 2 - 3 days; Reason: Recheck today's complaints, Continuance of care, Re-evaluation by your physician. - Problem is new. - Symptoms have improved. Signatures: Dispatcher [employer] EDMS Damien Pollock MD MD rn Marinas, Patrick, [employer] pm1 Florecita Bah RN RN vg1 Pratibha Fair RN RN ll1 Corrections: (The following items were deleted from the chart) 15:44 15:43 05/04/2020 15:43 Discharged to Home. Impression: Adverse effect of pm1 benzodiazepinesCannabis abuse. Condition is Stable. Discharge Instructions: Cannabis Use Disorder, What You Need To Know About Illegal Drug Use and Dependence, Youth. Forms are Medication Reconciliation Form, Thank You Letter, Antibiotic Education, Prescription Opioid Use. Follow up: Emergency Department; When: As needed; Reason: Worsening of condition. Follow up: Private Physician; When: 2 - 3 days; Reason: Recheck today's complaints, Continuance of care, Re-evaluation by your physician. Problem is new. Symptoms have improved. pm1 16:00 15:44 05/04/2020 15:43 Discharged to Home. Impression: Cannabis abuse; Adverse effect vg1 of benzodiazepines. Condition is Stable. Discharge Instructions: Cannabis Use Disorder, What You Need To Know About Illegal Drug Use and Dependence, Youth. Forms are Medication Reconciliation Form, Thank You Letter, Antibiotic Education, Prescription Opioid Use. Follow up: Emergency Department; When: As needed; Reason: Worsening of condition. Follow up: Private Physician; When: 2 - 3 days; Reason: Recheck today's complaints, Continuance of care, Re-evaluation by your physician. Problem is new. Symptoms have improved. pm1
[2020-05-04 15:55] LABS: Urine Blood TRACE (NEG); Urine Glucose NEGATIVE (NEG); Urine Protein TRACE (NEG)
[2020-05-04 18:08] VITALS: TEMP 97.5
[2020-05-04 18:18] VITALS: O2SAT 97
[2020-05-04 18:20] VITALS: BP 126/71
== END 2020-05-04 16:00 | disposition home or self-care (01) ==
LOC: ER 13:01
DX: F12.10 Cannabis abuse, uncomplicated (principal); T42.4X5A Adverse effect of benzodiazepines, initial encounter
CPT/HCPCS: 36415; 70450; 74177; 80048; 80076; 80307; 80320; 80329; 81003; 82565; 83690; 85025; 85610; 85730; 93005; 96361; 96374; 99284; J2405; J7030; Q9967

== ENCOUNTER 2023-05-25 04:36 | Emergency (ER) | payer SELFPAY ==
[2023-05-25] MEDS ORDERED: KETOROLAC 30 MG/ML INJ ONE (05:58)
[2023-05-25] MEDS ORDERED: PROMETHAZINE 25 MG TABLET ONE (06:03)
[2023-05-25] MEDS ORDERED: dexAMETHasone 10 MG/ML VIAL ONE (06:03)
[2023-05-25] MEDS ORDERED: CODEINE 12mg/APAP 120mg PER 5 ML UCUP ONE (06:06)
[2023-05-25 06:14] LABS: SARS-COV-2 RT PCR NEGATIVE (NEGATIVE)
--- NOTE | 2023-05-25 06:39 | EDPHYS ---
Physician Documentation [facility] Name: Bakari Mayers Age: 23 yrs Sex: Male : 2000 Arrival Date: 05/25/2023 Time: 04:36 Bed 15 Private MD: ED Physician Karthikeyan Corado HPI: 05/25 05:21 This 23 yrs old Male presents to ER via Ambulatory with complaints of Cough, sp4 Congestion, Chest Wall Pain. 06:42 23-year-old male presents with 2 days old sore throat, cough, chest wall pain with sp4 cough, chills, subjective fever, and feeling unwell. Historical: - Allergies: 04:54 No Known Allergies; lg3 - Home Meds: 04:54 None [Active]; lg3 - PMHx: 04:54 None; lg3 - PSHx: 04:54 None; lg3 - Immunization history:: Adult Immunizations up to date, Client reports having NOT received the Covid vaccine. Flu vaccine is not up to date. - Social history:: Smoking status: Reported history of juuling and/or vaping. Patient uses alcohol, on a daily basis. - Family history:: not pertinent. ROS: 06:42 Constitutional: Positive fever, positive chills, positive fatigue, positive sore sp4 throat, positive cough, positive pleuritic chest pain 06:42 All other systems are negative, Exam: 06:42 Constitutional: This is a well developed, well nourished patient who is awake, alert, sp4 and in no acute distress. Head/Face: Normocephalic, atraumatic. Eyes: Pupils equal round and reactive to light, extra-ocular motions intact. Lids and lashes normal. Conjunctiva and sclera are not injected. Cornea within normal limits. Periorbital areas with no swelling, redness, or edema. ENT: Nares patent. No nasal discharge, no septal abnormalities noted. Tympanic membranes are normal and external auditory canals are clear. Oropharynx -bilateral redness, positive bilateral irritation, positive bilateral tonsilar enlargement Neck: Trachea midline, no thyromegaly or masses palpated, and no cervical lymphadenopathy. Supple, full range of motion without nuchal rigidity, or vertebral point tenderness. Chest/axilla: Normal chest wall appearance and motion. Nontender with no deformity. No lesions are appreciated. Cardiovascular: Regular rate and rhythm with a normal S1 and S2. No gallops, murmurs, or rubs. Normal PMI, no JVD. No pulse deficits. Respiratory: Lungs have equal breath sounds bilaterally, clear to auscultation and percussion. No rales, rhonchi or wheezes noted. No increased work of breathing, no retractions or nasal flaring. Abdomen/GI: Soft, non-tender, with normal bowel sounds. No distension or tympany. No guarding or rebound. No evidence of tenderness throughout. Back: No spinal tenderness. No costovertebral tenderness. Skin: Warm, dry with normal turgor. Normal color with no rashes, no lesions, and no evidence of cellulitis. MS/ Extremity: Pulses equal, no cyanosis. Neurovascular intact. Full, normal range of motion. Neuro: Awake and alert, GCS 15, oriented to person, place, time, and situation. Cranial nerves II-XII grossly intact. Motor strength 5/5 in all extremities. Sensory grossly intact. Psych: Awake, alert, with orientation to person, place and time. Behavior, mood, and affect are within normal limits 06:48 ECG was reviewed by the Attending Physician. EKG at 0 535 reveals normal sinus rhythm sp4 at the rate of 99 Vital Signs: 04:51 BP 142 / 89; Pulse 97; Resp 17; Temp 98.8; Pulse Ox 97% on R/A; Weight 113.4 kg (R); lg3 Height 6 ft. 0 in. ; 04:51 Body Mass Index 33.91 (113.40 kg, 182.88 cm) lg3 MDM: 05:27 Patient medically screened. sp4 06:34 ED course: Chest X ray - None TECHNIQUE: PA and lateral views of the chest. FINDINGS: sp4 Lung volumes adequate. Cardiac silhouette is normal in size. No pneumothorax. No large pleural effusion. No focal consolidation. No acute bony finding. IMPRESSION: No evidence of acute cardiopulmonary disease. . 06:42 Differential Diagnosis: Bronchitis Influenza Upper Respiratory Infection Sinusitis sp4 Pharyngitis Otitis Media. Data reviewed: vital signs, nurses notes, lab test result(s), Flu: positive EKG, radiologic studies, plain films. Consideration of Admission/Observation Escalation of care including admission/observation considered. ED course: Patient stable for discharge home, will prescribe Tamiflu, dextromethorphan, guaifenesin, ibuprofen, Phenergan as needed. 05/25 04:56 Order name: COVID-19/FLU A+B; Complete Time: 06:33 lg3 05/25 04:56 Order name: Strep; Complete Time: 06:33 lg3 05/25 06:31 Order name: Throat Culture EDMS 05/25 05:15 Order name: Chest Pa And Lat (2 Views) XRAY lg3 05/25 05:15 Order name: EKG; Complete Time: 05:15 lg3 05/25 05:15 Order name: EKG - Nurse/Tech; Complete Time: 05:38 lg3 EC:48 Rate is 99 beats/min. Rhythm is regular, Normal Sinus Rhythm. QRS [place] is Normal. IN sp4 interval is normal. QRS interval is normal. QT interval is normal. No Q waves. T waves are Normal. No ST changes noted. Clinical impression: Normal ECG. Interpreted by me. Reviewed by me. Administered Medications: 05:59 Drug: Ketorolac IM 60 mg IM once Route: IM; Site: left gluteus; jb4 05:59 Drug: Tylenol-Codeine #3 PO (120 mg - 12 mg) 10 ml PO once; RASS on ADMIN: Combtv4, jb4 Very Agttd3, Agttd2, Rstlss1, AlertClm0, Drwsy-1, Lt Sdtn-2, Mod Sdtn-3, Dp Sdtn-4, UnArsble-5 Route: PO; 05:59 Drug: Promethazine PO 25 mg PO once Route: PO; jb4 05:59 Drug: Dexamethasone IM 10 mg IM once Route: IM; Site: right gluteus; jb4 Disposition Summary: 05/25/23 06:39 Discharge Ordered Problem: new sp4 Symptoms: have improved sp4 Condition: Stable sp4 Diagnosis - Other specified viral diseases sp4 - Influenza B sp4 Followup: sp4 - With: Private Physician - When: 7 - 10 days - Reason: Recheck today's complaints Discharge Instructions: - Discharge Summary Sheet sp4 - Influenza, Adult, [id number] sp4 Forms: - Patient Portal Instructions sp4 Prescriptions: - dextromethorphan-guaifenesin 10-200 mg Oral capsule - take 2 capsule ORAL route every 6 hours PRN cough; 60 capsule; Refills: 0, sp4 Product Selection Permitted - Ibuprofen 800 mg Oral Tablet - take 1 tablet ORAL route every 8 hours As needed take with food; 30 tablet; sp4 Refills: 0, Product Selection Permitted - promethazine 25 mg Oral tablet - take 1 tablet ORAL route every 6 hours As needed; 30 tablet; Refills: 0, sp4 Product Selection Permitted - Tamiflu 75 mg Oral capsule - take 1 tablet ORAL route every 12 hours for 5 days; 10 tablet; Refills: 0, sp4 Product Selection Permitted Signatures: Dispatcher [employer] Saman Draper RN RN jb4 Dona Zepeda RN RN lg3 Karthikeyan Corado MD MD sp4
--- NOTE | 2023-05-25 06:39 | ER ---
Nurse's Notes [facility] Name: Bakari Mayers Age: 23 yrs Sex: Male : 2000 Arrival Date: 05/25/2023 Time: 04:36 Bed 15 Private MD: Diagnosis: Other specified viral diseases;Influenza B Presentation: 05/25 04:51 Chief complaint: Patient states: cough, congestion, sore throat, body aches, fever X2 lg3 days. Coronavirus screen: Client denies travel out of the [place] in the last 14 days. Client presents with at least one sign or symptom that may indicate coronavirus-19. Standard/surgical mask placed on the client. Ebola Screen: No symptoms or risks identified at this time. Initial Sepsis Screen: Does the patient meet any 2 criteria? No. Patient's initial sepsis screen is negative. Does the patient have a suspected source of infection? No. Patient's initial sepsis screen is negative. Risk Assessment: Do you want to hurt yourself or someone else? Patient reports no desire to harm self or others. Onset of symptoms was May 23, 2023. 04:51 Method Of Arrival: Ambulatory lg3 04:51 Acuity: BREANN 4 lg3 Triage Assessment: 04:54 General: Appears in no apparent distress. uncomfortable, Behavior is calm, cooperative. lg3 Pain: Complains of pain in throat, body, chest. EENT: No deficits noted. Reports nasal congestion nasal discharge. Neuro: No deficits noted. [place] Agitation-Sedation Scale (RASS): 0 - Alert and Calm Level of Consciousness is awake, alert, obeys commands, Oriented to person, place, time, situation. Cardiovascular: No deficits noted. Capillary refill < 3 seconds Clubbing of nail beds is absent JVD is absent Patient's skin is warm and dry. Respiratory: Reports cough that is pain with cough Breath sounds are clear bilaterally. GI: No deficits noted. No signs and/or symptoms were reported involving the gastrointestinal system. : No deficits noted. No signs and/or symptoms were reported regarding the genitourinary system. Derm: No deficits noted. No signs and/or symptoms reported regarding the dermatologic system. Skin is intact, is healthy with good turgor, Skin is dry, Skin is normal, Skin temperature is warm. Musculoskeletal: No deficits noted. No signs and/or symptoms reported regarding the musculoskeletal system. Circulation, motion, and sensation intact. Range of motion: intact in all extremities. Historical: - Allergies: 04:54 No Known Allergies; lg3 - Home Meds: 04:54 None [Active]; lg3 - PMHx: 04:54 None; lg3 - PSHx: 04:54 None; lg3 - Immunization history:: Adult Immunizations up to date, Client reports having NOT received the Covid vaccine. Flu vaccine is not up to date. - Social history:: Smoking status: Reported history of juuling and/or vaping. Patient uses alcohol, on a daily basis. - Family history:: not pertinent. Screenin:43 [facility] ED Fall Risk Assessment (Adult) History of falling in the last 3 months, jb4 including since admission No falls in past 3 months (0 pts) Confusion or Disorientation No (0 pts) Score/Fall Risk Level 0 - 2 = Low Risk Oriented to surroundings, Maintained a safe environment. Abuse screen: Denies threats or abuse. Nutritional screening: No deficits noted. Tuberculosis screening: No symptoms or risk factors identified. Assessment: 05:14 Reassessment: Patient appears in no apparent distress at this time. Patient and/or jb4 family updated on plan of care and expected duration. Pain level reassessed. Patient is alert, oriented x 3, equal unlabored respirations, skin warm/dry/pink. 06:43 Reassessment: Patient appears in no apparent distress at this time. Patient and/or jb4 family updated on plan of care and expected duration. Pain level reassessed. Patient is alert, oriented x 3, equal unlabored respirations, skin warm/dry/pink. Vital Signs: 04:51 BP 142 / 89; Pulse 97; Resp 17; Temp 98.8; Pulse Ox 97% on R/A; Weight 113.4 kg (R); lg3 Height 6 ft. 0 in. ; 04:51 Body Mass Index 33.91 (113.40 kg, 182.88 cm) lg3 ED Course: 04:39 Patient arrived in ED. jj6 04:54 Triage completed. lg3 04:54 Arm band placed on right wrist. lg3 05:11 Karthikeyan Corado MD is Attending Physician. sp4 05:52 Chest Pa And Lat (2 Views) XRAY In Process Unspecified. EDMS 06:43 Patient has correct armband on for positive identification. Bed in low position. Call jb4 light in reach. Side rails up X 1. 06:43 No provider procedures requiring assistance completed. Patient did not have IV access jb4 during this emergency room visit. Administered Medications: 05:59 Drug: Ketorolac IM 60 mg IM once Route: IM; Site: left gluteus; jb4 05:59 Drug: Tylenol-Codeine #3 PO (120 mg - 12 mg) 10 ml PO once; RASS on ADMIN: Combtv4, jb4 Very Agttd3, Agttd2, Rstlss1, AlertClm0, Drwsy-1, Lt Sdtn-2, Mod Sdtn-3, Dp Sdtn-4, UnArsble-5 Route: PO; 05:59 Drug: Promethazine PO 25 mg PO once Route: PO; jb4 05:59 Drug: Dexamethasone IM 10 mg IM once Route: IM; Site: right gluteus; jb4 Outcome: 06:39 Discharge ordered by . jennifer 06:43 Discharged to home ambulatory, with family, jb4 06:43 Condition: stable 06:43 Discharge instructions given to patient, Instructed on discharge instructions, follow up and referral plans. medication usage, Demonstrated understanding of instructions, follow-up care, medications, Prescriptions given X 4, 06:44 Patient left the ED. jb4 Signatures: Dispatcher [employer] EDSaman Birch RN RN jb4 Dona Zepeda RN RN lg3 Serenity Chavez jj6 Karthikeyan Corado MD MD sp4
[2023-05-25 06:50] VITALS: BP 142/89; TEMP 98.8; O2SAT 97
--- NOTE | 2023-05-25 10:06 | RAD REPORT ---
EXAM DESCRIPTION: RAD - Chest Pa And Lat (2 Views) - 05/25/2023 5:50 am CLINICAL HISTORY: CHEST PAIN COMPARISON: None TECHNIQUE: PA and lateral views of the chest. FINDINGS: Lung volumes adequate. Cardiac silhouette is normal in size. No pneumothorax. No large pleural effusion. No focal consolidation. No acute bony finding. IMPRESSION: No evidence of acute cardiopulmonary disease. Electronically signed by: Mary Santamaria MD 05/25/2023 06:00 AM STRAIGHTENER Due to temporary technical issues with the PACS/Fluency reporting system, reports are being signed by the in house radiologist without review as a courtesy to ensure prompt reporting. The interpreting r adiologist is fully responsible for the content of the report.
--- NOTE | 2023-05-30 14:04 | EKG ---
Test Date: 2023-05-25 Test Time: 05:35:26 [employer] Server: RADHA MEASUREMENT RESULTS: Intervals: Rate: 99 MD: 178 QRSD: 106 QT: 326 QTc: 418 [place]: P: 24 MD: 178 QRS: 105 T: 36 INTERPRETIVE STATEMENTS: Normal sinus rhythm Normal ECG Compared to ECG 03/25/2023 09:50:49 Sinus tachycardia no longer present Electronically Signed On 05-30-23 13:46:35 [employer] by Henry Naik
== END 2023-05-25 06:44 | disposition home or self-care (01) ==
LOC: ER 04:36
DX: J10.1 Influenza due to other identified influenza virus with other respiratory manifestations (principal); Z11.52 Encounter for screening for COVID-19
CPT/HCPCS: 0240U; 71046; 87070; 87081; 93005; 96372; 99284; J1100; Q0169